=== PATIENT | male | born 1980 | race Caucasian/White ===

== ENCOUNTER 2017-05-22 18:58 | Emergency (ER) | payer OTHER ==
[~2017-05-22 18:58] MED LIST: DIVA125T2 PO; LORA0.5T PO; OMEP-113 PO; RISP0.2517 PO
[2017-05-22 19:12] VITALS: BP 155/83; PULSE 85; RESP 12; O2SAT 98
--- NOTE | 2017-05-22 19:28 | ED.REPORT ---
HPI-Trauma Minor / Fall Date of Service May 22, 2017 ED Provider: Kita Castaneda MD Patient is a 36 year old male with a history of hypertension who presents to the ED due to a fall from 13ft. Associated symptoms include neck pain, back pain , bilateral hip pain and right elbow pain. He denies chest pain, numbness, weakness of hitting his head. The patient reports that he was carrying shingles up a ladder when he fell and landed on his right side and back. He rates the pain as a 9/10 and states that the pain is exacerbated with deep inhalation. Nursing Notes Stated Complaint: 13 FT FALL FROM LADDER Chief Complaint: Multiple Trauma/Fall Nursing Notes Reviewed: Yes Allergies: Coded Allergies: Heparin Analogues (Verified Allergy, Severe, "turns skin purple", 01/28/15) NSAIDS (Non-Steroidal Anti-Inflamma (Verified Allergy, Severe, GI BLEED, ) Sulfa (Sulfonamide Antibiotics) (Verified Allergy, Severe, kidney failure , 01/28/15) ciprofloxacin HCl (Verified Allergy, Severe, vomiting, hives, 01/28/15) Penicillins (Verified Allergy, Intermediate, rashes, swellng, 06/16/14) lamotrigine (Verified Allergy, Intermediate, rash, 06/16/14) Scheduled Divalproex DR (Depakote ) 125 Mg Tablet.dr Unknown Dose PO BID Swallowed whole without chewing to avoid local irritation of the mouth and throat. Omeprazole Magnesium (Omeprazole) 20 Mg Capsule.dr 40 MG PO DAILY Risperidone (Risperdal) 0.25 Mg Tablet Unknown Dose PO DAILY Scheduled PRN Lorazepam (Lorazepam) 0.5 Mg Tablet Unknown Dose PO HS PRN PRN For Insomnia oxyCODONE-Acetaminophen 5-325 mg (oxyCODONE-Acetaminophen 5-325 mg) 1 Each Tablet 1 TAB PO Q6H PRN PRN For Pain General Time Seen by MD: 19:27 Chief Complaint Fall Hx Obtained From: Patient Arrived By: Walk-in Onset Occurred: Just prior to arrival Symptom Duration: Since onset Caused by: Fall from height... (13ft) Location: Back Elbow right Hip left Hip right Neck Quality: Painful Severity: Current: Pain level 9 out of 10 Recent Healthcare: No recent hospitalization, Recent doctor visit Similar Sx Previous: No Past Medical History Past Medical History Reports: Asthma Past Surgical History craniosynostosis surgeries x2 Reports: Inguinal hernia repair Family History Reviewed, not relevant. Smoking History Never Smoker Social History Alcohol Use: Denies alcohol use Drug Use: THC Other Social History: Good social support Ambulatory Status Independent Review of Systems Constitutional: Denies: Chills, Fever Respiratory: Denies: Non-productive cough, Shortness of breath Musculoskeletal: Reports: Back pain, Extremity pain (right elbow), Neck pain Skin: Denies Itching, Denies Rash Neurologic: Denies: Change LOC, Numbness, Weakness Complete sys rev & neg: except as marked. Cardiovascular: Denies: Chest pain Physical Exam Initial Vital Signs Vital Signs (First) Date Time Temp Pulse Resp B/P Pulse Ox O2 Delivery O2 Flow Rate FiO2 05/22/17 19:12 37.0 85 12 155/83 98 Room Air Initial VS: Reviewed, Vital signs abnormal General/Constitutional: Awake, Alert Trauma - Neck Specific: Positive: Immobilized - C Collar generalized C-spine tenderness Head / Eyes: Atraumatic, Normocephalic, PERRL, EOMI Respiratory / Chest: Atraumatic, Breath sounds NL, Breath sounds = bilat, No respiratory distress Cardiovascular: Heart rate NL, Regular rhythm, Heart sounds NL Abdomen: Atraumatic, Soft, Non-tender BACK: upper thoracic spinal tenderness mid to low lumbar spinal tenderness UPPER EXTREMITIES: right proximal elbow bruising Lower Extremity / Pelvis / MS: No deformity, Neurologic intact, Vascular intact bilateral hip tenderness to compression Skin: Atraumatic, Color NL, No rash, Warm, Dry Neurologic: Oriented X3, Speech NL, No motor deficits, No sensory deficits Psychiatric: Affect NL, Mood NL Interpretation & Diagnostics Lab Results Interpretation Test 05/22/17 19:24 Hold Purple Top Tube Received (Received) Hold Blue Top Tube Received (Received) Hold [place] Top Tube Received (Received) Hold [place] Top Tube Received (Received) X-Ray Chest Interpretation Chest Xray Interpretation: IMPRESSION: No acute cardiopulmonary findings. Dictated by: Jess Estrada M.D. on 05/22/2017 at 20:33 Approved by: Jess Estrada M.D. on 05/22/2017 at 20:33 View: Portable, 1 view Interpretation / Wet Read by: Interpret - Radiologist X-Ray C-Spine Interpretation IMPRESSION: No acute radiographic findings. If there is high clinical suspicion for occult cervical spine injury, CT of the cervical spine is recommended. Dictated by: Jess Estrada M.D. on 05/22/2017 at 20:25 Approved by: Jess Estrada M.D. on 05/22/2017 at 20:25 Study: Portable AP view Interpretation / Wet Read by: Interpret - Radiologist X-Ray Interpretation Xray Interpretation: IMPRESSION: No acute vertebral body compression fractures. If there is high clinical suspicion for occult fracture, MRI of the lumbar spine is recommended. Dictated by: Jess Estrada M.D. on 05/22/2017 at 20:25 Approved by: Jess Estrada M.D. on 05/22/2017 at 20:27 Study Performed: LUMBAR SPINE Interpretation / Wet Read by: Interpret - Radiologist Xray Interpretation: IMPRESSION: No acute radiographic findings. If pain persists, repeat study in 5-7 days is recommended to exclude occult fracture. Dictated by: Jess Estrada M.D. on 05/22/2017 at 20:33 Approved by: Jess Estrada M.D. on 05/22/2017 at 20:34 X-Ray Ordered: Elbow right Interpretation / Wet Read by: Interpret - Radiologist Xray Interpretation: IMPRESSION: No acute radiographic findings. If pain persists, repeat study in 5-7 days is recommended to exclude occult fracture. Dictated by: Jess Estrada M.D. on 05/22/2017 at 20:32 Approved by: Jess Estrada M.D. on 05/22/2017 at 20:32 X-Ray Ordered: Pelvis Interpretation / Wet Read by: Interpret - Radiologist Xray Interpretation: IMPRESSION: No acute wedge compression deformity. Dictated by: Jess Estrada M.D. on 05/22/2017 at 20:34 Approved by: Jess Estrada M.D. on 05/22/2017 at 20:35 Study Performed: Thoracic spine Interpretation / Wet Read by: Interpret - Radiologist Re-Eval/Medical Decision Med Decision/Clinical Course This patient lost his balance on the ladder fell approximately 13 feet landing onto his right side. He complains of back pain to his cervical spine and upper back and low lumbar region. Gas has some right elbow pain. He does not have any signs of bruising other than to his right elbow no deformities. He complained of bilateral hip pain but is able to bear weight and walk. All x- rays were negative and on reexamination of his abdomen remains benign. He did not develop any new symptoms while here. The patient did not hit his head and there no external signs of trauma to his head. Re-Evaluation/Progress : Time of Eval: 21:01 Re-Evaluation/Progress Note: Discussed all results and plan for discharge. Patient understands and agrees to the plan. All questions were addressed. Counseled Regarding: Diagnosis, Lab results, Need for follow-up, When/why to return to ED Discharge & Departure Impression: Primary Impression: Fall Encounter type: initial encounter Qualified Code: W19.XXXA - Unspecified fall, initial encounter Additional Impressions: Thoracic back sprain Encounter type: initial encounter Qualified Code: S23.9XXA - Sprain of unspecified parts of thorax, initial encounter Lumbar contusion Encounter type: initial encounter Qualified Code: S30.0XXA - Contusion of lower back and pelvis, initial encounter Disposition: Home Discharge Condition All VS Reviewed: Yes Condition: Stable Patient Instructions: Contusion in Adults (ED) Additional Instructions: All of your X-rays were normal. There was no evidence of any fractures. You can expect to be sore for the next few days but then you should start to feel better. You can take 1-2 Percocet every 6 hours as needed for pain. Do not drink alcohol or drive while taking the pain medication. Do not combine with Acetaminophen. Follow up with your primary care physician next week if the pain persists. Return to the emergency department if you develop any new or concerning symptoms. Referrals: Db Rangel PA-C (PCP) [facility] Marisol Attestation Portions of this note were transcribed by Rajni Cespedes. I, Dr. Castaneda personally performed the history, physical exam and medical decision-making; I reviewed and confirmed the accuracy of the information in the transcribed note. Signed by: Marisol Nunez, 05/22/17 and 1950 copies to: Db Rangel PA-C; [facility] Kita Castaneda MD May 22, 2017 19:28 Anitha Cespedes May 22, 2017 19:36
[2017-05-22] MEDS ORDERED: Ondansetron 2 mg/mL 2 mL Inj ONE (19:32)
[2017-05-22] MEDS: HYDROmorphone 0.5 mg/0.5 mL iSecure Syringe IVPUSH PRN ×3 (19:34→20:40)
[2017-05-22] MEDS ORDERED: 0.9% Sodium Chloride 500 ML IV ONE (19:35)
[2017-05-22] MEDS ORDERED: Ondansetron 2 mg/mL 2 mL Inj IVPUSH PRN (19:35)
--- NOTE | 2017-05-22 20:27 | DRSVH ---
PROCEDURE: X-RAY CERVICAL SPINE, 2 OR 3 VIEWS INDICATIONS: fall TECHNIQUE: 3 view(s) of the cervical spine were acquired. COMPARISON: None. FINDINGS: Bones: No fractures or dislocations to the C6 level. The lateral masses of C1 appear intact on the odontoid view. No suspicious bony lesions. Soft tissues: No prevertebral soft tissue swelling. IMPRESSION: No acute radiographic findings. If there is high clinical suspicion for occult cervical spine injury, CT of the cervical spine is recommended. Dictated by: Jess Estrada M.D. on 05/22/2017 at 20:25 Approved by: Jess Estrada M.D. on 05/22/2017 at 20:25
--- NOTE | 2017-05-22 20:29 | DRSVH ---
PROCEDURE: X-RAY LUMBAR SPINE, 2 OR 3 VIEW INDICATIONS: fall TECHNIQUE: 3 views of the lumbar spine were acquired. COMPARISON: [facility], , SPINE LUMB 2 OR 3VW, 11/04/2013, 13:48. FINDINGS: Bones: 5 [id number] vertebrae are present. There is normal bony alignment. There is fluffy expe cted lumbar lordosis. No vertebral body compression fractures. No suspicious bony lesions. Soft tissues: Overlying bowel gas pattern is normal. No suspicious soft tissue calcifications. IMPRESSION: No acute vertebral body compression fractures. If there is high clinical suspicion for oc cult fracture, MRI of the lumbar spine is recommended. Dictated by: Jess Estrada M.D. on 05/22/2017 at 20:25 Approved by: Jess Estrada M.D. on 05/22/2017 at 20:27
--- NOTE | 2017-05-22 20:34 | DRSVH ---
PROCEDURE: X-RAY PELVIS, ONE OR TWO VIEWS ([id number]) INDICATIONS: fall TECHNIQUE: Single view(s) of the pelvis acquired. COMPARISON: None. FINDINGS: Bones: No fractures or dislocations. No suspicious bony lesions. Soft tissues: Visualized bowel gas pattern is normal. No suspicious soft tissue calcifications. IMPRESSION: No acute radiographic findings. If pain persists, repeat study in 5-7 days is recommende d to exclude occult fracture. Dictated by: Jess Estrada M.D. on 05/22/2017 at 20:32 Approved by: Jess Estrada M.D. on 05/22/2017 at 20:32
--- NOTE | 2017-05-22 20:34 | DRSVH ---
PROCEDURE: X-RAY CHEST ONE VIEW, PORTABLE ([id number]) INDICATIONS: fall TECHNIQUE: One view of the chest was acquired. COMPARISON: None. FINDINGS: Surgical changes and devices: None. Lungs and pleura: No pleural effusions or pneumothorax. Lungs are clear. Mediastinum: Mediastinal contours appear normal. Heart size is normal. Bones and chest wall: No suspicious bony lesions. Overlying soft tissues appear unremarkable. IMPRESSION: No acute cardiopulmonary findings. Dictated by: Jess Estrada M.D. on 05/22/2017 at 20:33 Approved by: Jess Estrada M.D. on 05/22/2017 at 20:33
--- NOTE | 2017-05-22 20:35 | DRSVH ---
PROCEDURE: X-RAY RIGHT ELBOW COMPLETE, MINIMUM THREE VIEWS ([id number]) INDICATIONS: fall TECHNIQUE: 3 views of the elbow were acquired. COMPARISON: None. FINDINGS: Bones: No fractures or dislocations. No suspicious bony lesions. Soft tissues: No elbow joint effusion. No suspicious soft tissue calcifications. IMPRESSION: No acute radiographic findings. If pain persists, repeat study in 5-7 days is recommende d to exclude occult fracture. Dictated by: Jess Estrada M.D. on 05/22/2017 at 20:33 Approved by: Jess Estrada M.D. on 05/22/2017 at 20:34
--- NOTE | 2017-05-22 20:37 | DRSVH ---
PROCEDURE: X-RAY THORACIC SPINE, 2 VIEWS INDICATIONS: fall TECHNIQUE: 3 views of the thoracic spine were acquired. COMPARISON: None. FINDINGS: Bones: No fractures or dislocations. No suspicious bony lesions. 11 pairs of ribs are noted, and ap pear intact where visualized. Soft tissues: No paravertebral stripe thickening. IMPRESSION: No acute wedge compression deformity. Dictated by: Jess Estrada M.D. on 05/22/2017 at 20:34 Approved by: Jess Estrada M.D. on 05/22/2017 at 20:35
[2017-05-22] MEDS ORDERED: OXYC1TAB24 PO (21:09)
[2017-05-22] MEDS ORDERED: _oxyCODONE/APAP 5-325 mg Tablet PO PRN ×2 (21:10)
[2017-05-22 21:23] VITALS: BP 130/68; PULSE 78; RESP 16; O2SAT 95
== END 2017-05-22 21:35 | disposition home or self-care (01) ==
LOC: SED 18:58
DX: S23.9XXA Sprain of unspecified parts of thorax, initial encounter (principal); S30.0XXA Contusion of lower back and pelvis, initial encounter; W11.XXXA Fall on and from ladder, initial encounter; Y93.9 Activity, unspecified; Y92.9 Unspecified place or not applicable; Y99.9 Unspecified external cause status; R07.1 Chest pain on breathing
CPT/HCPCS: 71010; 72040; 72070; 72100; 72170; 73080; 96374; 96375; 99285; J1170; J2405; J7040

== ENCOUNTER 2017-05-31 08:57 | Emergency (ER) | payer OTHER ==
[~2017-05-31] VITALS: Ht 172.7 cm; Wt 61.4 kg
[~2017-05-31 08:57] MED LIST changes: +OXYC1TAB24 PO
[2017-05-31 09:00] VITALS: BP 118/81; PULSE 81; RESP 15; O2SAT 100
--- NOTE | 2017-05-31 09:26 | ED.REPORT ---
HPI-Abd Pain M Under 40 Date of Service May 31, 2017 ED Provider: Luiz Art MD Patient is a 36 year old male with a hx of HTN and "stomach issues" who presents to the ED complaining of abdominal pain onset a few days ago. Associated symptoms include nausea, decreased appetite, diarrhea, and white lbbclgs-lujvxn-uhua chunks in his diarrhea. He denies vomiting, hematochezia, melena, or any other symptoms. Nursing Notes Stated Complaint: POSS STOMACH INFECTION Chief Complaint: Male Abdominal Pain Nursing Notes Reviewed: Yes Allergies: Coded Allergies: Heparin Analogues (Verified Allergy, Severe, "turns skin purple", 01/28/15) NSAIDS (Non-Steroidal Anti-Inflamma (Verified Allergy, Severe, GI BLEED, ) Sulfa (Sulfonamide Antibiotics) (Verified Allergy, Severe, kidney failure , 01/28/15) ciprofloxacin HCl (Verified Allergy, Severe, vomiting, hives, 01/28/15) Penicillins (Verified Allergy, Intermediate, rashes, swellng, 06/16/14) lamotrigine (Verified Allergy, Intermediate, rash, 06/16/14) Scheduled Divalproex DR (Depakote DR) 125 Mg Tablet.dr Unknown Dose PO BID Swallowed whole without chewing to avoid local irritation of the mouth and throat. Omeprazole Magnesium (Omeprazole) 20 Mg Capsule.dr 40 MG PO DAILY Risperidone (Risperdal) 0.25 Mg Tablet Unknown Dose PO DAILY Scheduled PRN Lorazepam (Lorazepam) 0.5 Mg Tablet Unknown Dose PO HS PRN PRN For Insomnia oxyCODONE-Acetaminophen 5-325 mg (oxyCODONE-Acetaminophen 5-325 mg) 1 Each Tablet 1 TAB PO Q6H PRN PRN For Pain General Time Seen by MD: 09:08 Chief Complaint Abdominal pain Hx Obtained From: Patient Arrived By: Walk-in Sudden in Onset?: Yes Onset Occurred: 3 days ago Symptom Duration: Since onset Past Medical History Past Medical History HTN PTSD Depression Anxiety Reports: Asthma Past Surgical History craniosynostosis surgeries x2 colonoscopy Reports: Inguinal hernia repair Family History Reviewed, not relevant. Smoking History Never Smoker Social History Previous suicide attempts hx cocaine use Alcohol Use: Denies alcohol use Drug Use: THC Other Social History: Good social support Ambulatory Status Independent Review of Systems Review of Systems Note: +decreased appetite, ricky suaqnug-vaxpjo-uxup chunks in diarrhea GI: Reports: Abdominal pain, Diarrhea, Nausea, Denies: Hematochezia, Melena, Vomiting Complete sys rev & neg: except as marked. Physical Exam Initial Vital Signs Vital Signs (First) Date Time Temp Pulse Resp B/P Pulse Ox O2 Delivery O2 Flow Rate FiO2 05/31/17 09:00 36 81 15 118/81 100 Room Air Initial VS: Reviewed, Vital signs normal Head / Eyes: Atraumatic, Normocephalic Neck: Full range of motion Skin: Warm, Dry Neurologic: Alert, Oriented, Nonfocal Psychiatric: Mood/affect normal, Behavior normal, Normal thought content General/Constitutional: Awake, Alert, No acute distress Respiratory / Chest: Breath sounds NL, Breath sounds = bilat, No respiratory distress Cardiovascular: Heart rate NL, Regular rhythm, Heart sounds NL, No gallop, No murmurs, No rubs Abdomen: Atraumatic, Soft, No guarding, No rebound Minimal tenderness Back: Inspection NL, No CVA tenderness Interpretation & Diagnostics Lab Results Interpretation Result Diagram: 05/31/17 0928 05/31/17 0928 Test 05/31/17 09:28 05/31/17 10:51 White Blood Count 6.7th/mm3 (3.8-10.1) Red Blood Count 5.13mil/mm3 (4.40-5.80) Hemoglobin 15.2g/dL (13.8-17.2) Hematocrit 44.7% (41.0-50.0) Mean Corpuscular Volume 87.1fL (81-100) Mean Corpuscular Hemoglobin 29.6pg (27.0-35.0) Mean Corpuscular Hemoglobin Concent 34.0% (32.0-37.0) Red Cell Distribution Width 13.2% (12.3-15.4) Platelet Count 267bil/L (150-400) Neutrophils (%) (Auto) 59.7% (40-74) Lymphocytes (%) (Auto) 31.8% (14-46) Monocytes (%) (Auto) 7.6% (4-12) Eosinophils (%) (Auto) 0.4% (0-5) Basophils (%) (Auto) 0.4% (0-3) Sodium Level 141mEq/L (134-144) Potassium Level 4.3mEq/L (3.5-5.2) Chloride Level 103mEq/L (97-108) Carbon Dioxide Level 22mmol/L (18-29) Blood Urea Nitrogen 26mg/dL (6-20) Creatinine 0.93mg/dL (0.76-1.27) Estimat Glomerular Filtration Rate 99mL/min (>59) Glucose Level 112mg/dL (60-99) Calcium Level 10.1mg/dL (8.5-10.1) Magnesium Level 2.2mg/dL (1.6-2.6) Total Bilirubin 0.7mg/dL (0.0-1.2) Aspartate Amino Transf (AST/SGOT) 23U/L (0-50) Alanine Aminotransferase (ALT/SGPT) 8U/L (0-44) Alkaline Phosphatase 60U/L (25-150) Total Protein 7.9g/dL (6.4-8.4) Albumin 4.6g/dL (3.4-5.0) Lipase 40U/L (13-60) Hold Urine Received (Received) Re-Eval/Medical Decision Med Decision/Clinical Course 36-year-old male with crampy abdominal pain and diarrhea since this morning. Denies any blood. Denies any history of antibiotic use recently. Abdominal exam minimal tenderness soft no rebound or guarding. His labs are unremarkable. He had no episodes of diarrhea here. He had no episodes of vomiting. Given his minimal abdominal tenderness in the feels much better with IV fluids and do not see an indication for CT at this time. Patient prefers to be discharged home. He will be discharged home with a stool collection kit. Return precautions given. Re-Evaluation/Progress : Time of Eval: 11:06 )( Re-Eval Abdomen: Soft Re-Evaluation/Progress Note: Discussed plan for discharge. Patient understands and agrees with plan. All questions addressed at this time. Counseled Regarding: Diagnosis, Lab results, Need for follow-up, When/why to return to ED Patient Discharge & Departure Primary Impression: Abdominal pain Abdominal location: generalized Qualified Code: R10.84 - Generalized abdominal pain Additional Impression: Diarrhea Diarrhea type: unspecified type Qualified Code: R19.7 - Diarrhea, unspecified Disposition: Home Discharge Condition All VS Reviewed: Yes Condition: Improved Additional Instructions: Thank you for entrusting us with your care. Your labs and examination are reassuring. You likely have a viral illness causing your diarrhea. Collect a stool sample in the collection kit and return it to our labs for testing. Follow up with your primary doctor tomorrow for re-evaluation. Return to the emergency department for bloody stools, bloody vomit, high fevers , increasing abdominal pain, nausea, vomiting, black tarry stools, or any other new or worsening symptoms. Referrals: [facility] Scribe Attestation Portions of this note were transcribed by Isamar Burris. I, Dr. Art personally performed the history, physical exam and medical decision-making; I reviewed and confirmed the accuracy of the information in the transcribed note. Signed by: Marisol Montalvo, 05/31/17 at 1111. copies to: [facility] Luiz Art MD May 31, 2017 09:25 ISAMAR BURRIS May 31, 2017 10:09
[2017-05-31 09:45] LABS: Mean Corpuscular Volume 87.1 fL (81-100)
[2017-05-31 09:46] LABS: BASOPHILS % (AUTO) 0.4 % (0-3); EOSINOPHILS % (AUTO) 0.4 % (0-5); MONOCYTES % (AUTO) 7.6 % (4-12); Mean Corpuscular Hemoglobin 29.6 pg (27.0-35.0); NEUTROPHILS % (AUTO) 59.7 % (40-74); Platelet Count 267 bil/L (150-400)
[2017-05-31 09:54] LABS: Magnesium 2.2 mg/dL (1.6-2.6)
[2017-05-31] MEDS ORDERED: 0.9% Sodium Chloride 1,000 ML IV ONE (10:08)
[2017-05-31] MEDS ORDERED: Ondansetron 2 mg/mL 2 mL Inj IVPUSH PRN (10:10)
[2017-05-31] MEDS: HYDROmorphone 0.5 mg/0.5 mL iSecure Syringe IVPUSH PRN ×2 (10:29→11:15)
[2017-05-31 11:13] VITALS: BP 131/74; PULSE 83; RESP 16; O2SAT 99
[2017-05-31 11:39] VITALS: BP 125/65; PULSE 70; RESP 16; O2SAT 100
== END 2017-05-31 11:40 | disposition home or self-care (01) ==
LOC: SED 08:57
DX: R10.84 Generalized abdominal pain (principal); R19.7 Diarrhea, unspecified; R11.0 Nausea; R63.0 Anorexia; J45.909 Unspecified asthma, uncomplicated; I10 Essential (primary) hypertension; F41.8 Other specified anxiety disorders; Z98.890 Other specified postprocedural states; Z88.0 Allergy status to penicillin; Z88.1 Allergy status to other antibiotic agents; Z88.2 Allergy status to sulfonamides; Z88.8 Allergy status to other drugs, medicaments and biological substances
CPT/HCPCS: 36415; 80053; 83690; 83735; 85025; 96361; 96374; 96375; 96376; 99285; J1170; J2405; J7030